=== PATIENT | female | born 1985 | race Caucasian/White ===

== ENCOUNTER → 2021-08-17 11:21 | Outpatient (CLI) | payer SELFPAY | PROVIDERS: PCP Family Medicine; Visit Provider Family Medicine | DX: R30.9 Painful micturition, unspecified (principal) | CPT/HCPCS: 87086 ==

== ENCOUNTER → 2021-11-25 08:28 | Outpatient (CLI) | payer SELFPAY ==
[2021-11-25 18:45] LABS: Hematocrit 42.7 % (36-46); Hemoglobin 14.3 g/dL (12.0-16.0); Mean Corpuscular HGB Conc 33.5 % (30-36); Mean Corpuscular Volume 89.6 fL (80-100); Platelet Count 272 X10^3/uL (150-400); Red Blood Cell Count 4.77 X10^6/uL (4.0-5.2); Red Cell Distribution Width 13.1 % (11.6-14.8); White Blood Cell Count 5.8 X10^3/uL (4.5-11.0)
[2021-11-25 19:08] LABS: Alanine Aminotransferase 14 IU/L (<35); Albumin 4.9 g/dL (3.5-5.0); Albumin Globulin Ratio 1.6 (1.0-2.8); Alkaline Phosphatase 64 U/L (38-126); Amylase 71 U/L (30-110); Aspartate Aminotransferase 24 IU/L (14-36); Bilirubin Total 0.6 mg/dL (0.2-1.3); Blood Urea Nitrogen 12 mg/dL (7-17); Calcium 9.5 mg/dL (8.4-10.2); Carbon Dioxide 29 mmol/L (22-32); Chloride 100 mmol/L (98-107); Estimated Glomerular Filt Rate > 60.0 mL/min (>60); Gamma Glutamyl Transpeptidase 29 U/L (12-43); Globulin 3.1 g/dL (1.7-4.1); Glucose 93 mg/dL (70-100); HEMOLYSIS < 15 (0-50); Lipase 32 U/L (23-300); Potassium 4.1 mmol/L (3.4-5.1); Sodium 138 mmol/L (137-145)
[2021-11-25 19:54] LABS: Neutrophils Absolute Manual 2204 /uL (3000-5900); Total Cells Counted 100
[2021-11-25 19:56] LABS: Anisocytosis 1+
== END ==
PROVIDERS: PCP Family Medicine; Visit Provider Physician Assistant Medical
DX: M94.0 Chondrocostal junction syndrome [Tietze] (principal); R07.81 Pleurodynia; R10.12 Left upper quadrant pain
CPT/HCPCS: 80053; 82150; 82977; 83690; 85025

== ENCOUNTER → 2021-12-02 11:37 | Outpatient (CLI) | payer SELFPAY ==
[2021-12-02 19:58] LABS: Add Manual Diff / Slide Review NO; Basophils Absolute Auto 0 /uL (0-100); Basophils Percent Auto 0.6 % (0-2); Eosinophils Absolute Auto 100 /uL (0-450); Eosinophils Percent Auto 1.8 % (2-4); Hematocrit 39.1 % (36-46); Hemoglobin 13.4 g/dL (12.0-16.0); Lymphocytes Absolute Auto 2200 /uL (1100-4500); Lymphocytes Percent Auto 34.3 % (25-40); Mean Corpuscular HGB Conc 34.2 % (30-36); Mean Corpuscular Hemoglobin 30.5 PG (26-34); Mean Corpuscular Volume 89.2 fL (80-100); Monocytes Absolute Auto 600 /uL (0-900); Monocytes Percent Auto 9.1 % (3-14); Neutrophils Absolute Auto 3400 /uL (1500-7000); Neutrophils Percent Auto 54.2 % (50-75); Platelet Count 339 X10^3/uL (150-400); Red Blood Cell Count 4.38 X10^6/uL (4.0-5.2); Red Cell Distribution Width 13.1 % (11.6-14.8); White Blood Cell Count 6.4 X10^3/uL (4.5-11.0)
== END ==
PROVIDERS: PCP Family Medicine; Visit Provider Physician Assistant Medical
DX: R79.89 Other specified abnormal findings of blood chemistry (principal)
CPT/HCPCS: 85025

== ENCOUNTER → 2022-04-16 10:41 | Outpatient (CLI) | payer SELFPAY ==
--- NOTE | 2022-04-16 | DI.US.S_ITS ---
PROCEDURE: US ABDOMEN COMPLETE INDICATIONS: LUQ PAIN TECHNIQUE: Real-time scanning was performed of the abdominal and retroperitoneal organs, with image documentation. COMPARISON: None. FINDINGS: Liver: Liver is normal in size and homogeneous in echotexture. Gallbladder: There is no gallstone. No gallbladder wall thickening or pericholecystic fluid. No sonographic Nguyễn sign. Biliary ducts: Intrahepatic bile ducts are non-dilated. Extrahepatic bile duct caliber measures 3.4 mm. Normal is 6-7 mm or less in diameter, or 10 mm or less post-cholecystectomy. Pancreas: Visualized portions of the pancreas are sonographically normal. Spleen: Spleen is normal in size and homogeneous in echotexture. Kidneys: Kidneys are normal in size and echotexture. Right kidney measures 10.0 cm long; left kidney measures 9.8 cm long. No hydronephrosis or nephrolithiasis. No solid masses. Aorta: Visualized aorta is normal in caliber at less than 3 cm. Iliacs: Proximal common iliac arteries are normal in caliber at less than 2.5 cm. IVC: Intrahepatic inferior vena cava is patent. Miscellaneous: No free abdominal fluid. IMPRESSION: Unremarkable ultrasound examination of abdomen. No finding to explain patient's symptoms. Dictated by: Juanjo Odom M.D. on 04/16/2022 at 12:02 Approved by: Juanjo Odom M.D. on 04/16/2022 at 12:08
== END ==
PROVIDERS: PCP Physician Assistant Medical; Referring Provider Physician Assistant Medical; Visit Provider Physician Assistant Medical
DX: R10.12 Left upper quadrant pain (principal)
CPT/HCPCS: 76700

== ENCOUNTER 2023-03-22 08:46 | Emergency (ER) | payer SELFPAY ==
[2023-03-22 09:00] VITALS: BP 142/77; PULSE 107; RESP 16; TEMP 36.4; O2SAT 100; BMI 19.8
--- NOTE | 2023-03-22 09:10 | ED.GENADULT ---
HPI - General Adult General Chief complaint: Neck Pain/Injury Stated complaint: Chiropractor T-1 neck pain/ can't sleep/N/dizzy/ Time Seen by Provider: 03/22/23 09:04 Source: patient Mode of arrival: Ambulatory Limitations: no limitations History of Present Illness HPI narrative: Patient is a 37-year-old female who yesterday went to a chiropractor for the 1st time. She states that was because she was having some rib discomfort. She stated that she was adjusted but did not have any ?cracking? of her back or her neck. She stated that the chiropractor use the ?thumper?. She states that the very last adjustment was the left side of her upper back but not her neck. She stated that afterwards she was not feeling very well. She did have some vomiting. Since that time she is had a lot of neck discomfort and upper back discomfort. She could not sleep last night. She found very dizzy. No headache. No abdominal pain. Related Data Home Medications Medication Instructions Recorded Confirmed levetiracetam 250 mg tablet 250 mg PO ONCE 11/23/21 11/23/21 lorazepam 1 mg tablet 1 mg PO DAILY PRN 11/23/21 11/23/21 prazosin 2 mg capsule 2 mg PO BEDTIME 11/23/21 11/23/21 propranolol 120 mg capsule,24 120 mg PO DAILY 11/23/21 11/23/21 hr,extended release propranolol 40 mg tablet 20 mg PO ONCE PRN 11/23/21 11/23/21 Previous Rx's Medication Instructions Recorded gabapentin 100 mg capsule 100 mg PO TID #42 caps 11/25/21 cyclobenzaprine 10 mg tablet 10 mg PO TID PRN muscle spasm #20 03/22/23 tabs cyclobenzaprine 10 mg tablet 10 mg PO TID PRN muscle spasm #20 03/22/23 tabs Allergies Allergy/AdvReac Type Severity Reaction Status Date / Time clindamycin Allergy Severe Anaphylaxis Unverified 11/23/21 06:36 latex Allergy Unknown Rash Unverified 11/23/21 06:36 Review of Systems Constitutional Constitutional: Reports system reviewed and no additional complaints, except as documented Musculoskeletal Musculoskeletal: Reports system reviewed and no additional complaints, except as documented Integumentary/Breasts Skin/Breast: Reports system reviewed and no additional complaints, except as documented Neurologic Neurologic: Reports system reviewed and no additional complaints, except as documented Patient History Medical History Family history of anxiety disorder Family history of migraine headaches in mother Impacted cerumen, right ear Right ear pain Surgical History (Updated 11/23/21 @ 07:00 by Kitty Lynch CMA) H/O: hysterectomy Social History Smoking Status: Smoker, status unknown Smoking Status: Smoker, status unknown Exam Initial Vital Signs Initial Vital Signs: Vital Signs Temperature 97.6 F 03/22/23 09:00 Pulse Rate 107 H 03/22/23 09:00 Respiratory Rate 16 03/22/23 09:00 Blood Pressure 142/77 H 03/22/23 09:00 Pulse Oximetry 100 03/22/23 09:00 Oxygen Delivery Method Room Air 03/22/23 09:00 HENMT Head: normal to inspection and normocephalic Resp Effort & Inspection: normal respiratory effort Cardio Rate: regular rate Back/Spine/Pelvis Other: Patient has discomfort in the right cervical paraspinal with fullness of the muscles in his area. She also has discomfort over the right trapezius/rhomboid with fullness of the muscle was well. She is no lumbar tenderness. Does have some discomfort with palpation of the left-sided paraspinal but certainly not as much as the right. Neuro General: patient alert and patient awake Extrem Other: No gross deformities Psych Mood: anxious mood Course Orders Ordered: ED Orders 03/22/23 10:59 CT cervical spine wo con Stat Discontinued Medications Diazepam (Diazepam 5 Mg Tablet) 5 mg PO NOW ONE Stop: 03/22/23 09:11 Last Admin: 03/22/23 09:18 Dose: 5 mg Documented By: SUSAN Ketorolac Tromethamine (Ketorolac 30 Mg/Ml Vial) 30 mg IM NOW ONE Stop: 03/22/23 09:11 Last Admin: 03/22/23 09:18 Dose: 30 mg Documented By: SUSAN Vital Signs Vital signs: Vital Signs - 8 hr 03/22/23 09:00 03/22/23 09:46 03/22/23 10:39 Temperature 97.6 F Pulse Rate 107 H 92 H 82 Respiratory Rate 16 14 19 Blood Pressure 142/77 H 115/58 L 115/58 L Pulse Oximetry 100 97 99 Oxygen Delivery Method Room Air Room Air Room Air Medical Decision Making Lab Data Lab results reviewed: Yes I reviewed the patient's lab results. Labs: Urine Dip Bedside Urine Glucose Negative Bedside Urine Bilirubin - Negative Bedside Urine Ketone +++ 80 Urine Specific [place] 1.010 Bedside Urine Occult Blood - Negative Bedside Urine pH 6.0 Bedside Urine Protein - Negative Bedside Urine Urobilinogen - Negative Bedside Urine Nitrite - Negative Bedside Urine Leukocytes - Negative Esterase Point of care testing: Urine Dip Bedside Urine Glucose Negative Bedside Urine Bilirubin - Negative Bedside Urine Ketone +++ 80 Urine Specific [place] 1.010 Bedside Urine Occult Blood - Negative Bedside Urine pH 6.0 Bedside Urine Protein - Negative Bedside Urine Urobilinogen - Negative Bedside Urine Nitrite - Negative Bedside Urine Leukocytes - Negative Esterase MDM Narrative Medical decision making narrative: Patient is very anxious upon arrival. She has reproducible discomfort to her right-sided cervical paraspinal region and also her right-sided thoracic spinal region. Given her presentation today I do have low suspicion that she has a dissection or an aneurysm. She states she did not get any high velocity treatments yesterday by the chiropractor and there was no specific treatment in her cervical region. It was after the chiropractor use the minimally invasive ?thumper? on the left side of her upper back as when she started to have the symptoms. A very strong suspicion that this is muscular in origin. She was given Valium and Toradol. She states she felt less anxious but was still having quite a bit of discomfort. It is absolutely positional. When she extends her neck or turns her head from [id number] is when the symptoms occur most. There is a fullness of the muscle on the right side consistent with a muscle spasm. No fractures noted. Had a discussion with her regarding this. We did discuss conservative measures to include heat and ice and massage. Was sent home with muscle relaxers. Patient was given return precautions. She expressed understanding and agreement. Discharge Plan Departure Patient Disposition: Home Clinical Impression: Cervical muscle strain, Upper back pain Instructions: DI for Muscle Spasm Activity Restrictions/Additional Instructions: I do recommend that you continue with a conservative measures such as heat and ice and light stretching and massage. You can also continue with anti-inflammatories such as Motrin/ibuprofen and also Naprosyn. A prescription for muscle relaxers was sent to [facility].. Please start taking them as directed. Return to the emergency department for new symptoms. Prescriptions: New cyclobenzaprine 10 mg tablet 10 mg PO TID PRN (Reason: muscle spasm) Qty: 20 0RF cyclobenzaprine 10 mg tablet 10 mg PO TID PRN (Reason: muscle spasm) Qty: 20 0RF No Action gabapentin 100 mg capsule 100 mg PO TID Qty: 42 0RF propranolol 40 mg tablet 20 mg PO ONCE PRN Rx Instructions: Take 1 by mouth 1-2x/day in addition to the 120mg daily version when needed for anxiety. propranolol 120 mg capsule,extended release 24 hr 120 mg PO DAILY prazosin 2 mg capsule 2 mg PO BEDTIME Rx Instructions: Take 4 capsules (8 mg) by mouth at bedtime. levetiracetam 250 mg tablet 250 mg PO ONCE Rx Instructions: Take one daily for a week and then 1/2 daily for a week. lorazepam 1 mg tablet 1 mg PO DAILY PRN Rx Instructions: Take 0.5-2 tablets (0.5-2 mg) by mouth daily as needed for anxiety. Referrals: Mary Mckeon PA-C [Primary Care Provider] - Stand Alone Forms: Patient Portal/API
[2023-03-22] MEDS: KETOROLAC 30 MG/ML VIAL IM (09:18)
[2023-03-22] MEDS: diazePAM 5 MG TABLET PO (09:18)
[2023-03-22 09:46] VITALS: BP 115/58; PULSE 92; RESP 14; O2SAT 97
[2023-03-22 10:39] VITALS: BP 115/58; PULSE 82; RESP 19; O2SAT 99
--- NOTE | 2023-03-22 10:59 | DI.CT.S_ITS ---
PROCEDURE: CT CERVICAL SPINE WO CON INDICATIONS: pain after chiropractor adjustment TECHNIQUE: Noncontrast 3 mm thick sections acquired from the skull base to the T4 level. Sagittal and coronal reformats were then constructed. For radiation dose reduction, the following was used: automated exposure control, adjustment of mA and/or kV according to patient size. COMPARISON: [facility], CT, CT CERVICAL SPINE WITHOUT CONTRAST, 03/10/2019, 0:43. FINDINGS: Image quality: This examination is limited by involuntary motion artifact. Bones: No fractures or dislocations. Visualized superior ribs are intact. Soft tissues: Prevertebral soft tissues are normal in thickness. No paravertebral hematomas. No apical pneumothoraces. IMPRESSION: Motion limited study, yet without an acute fracture identified. If there is strong clinical concern for dissection in this patient with this given history, then please consider a dedicated CT angiogram of the neck for further evaluation. Dictated by: Rao Marie M.D. on 03/22/2023 at 10:52 Approved by: Rao Marie M.D. on 03/22/2023 at 10:53
== END 2023-03-22 12:20 | disposition home or self-care (01) ==
PROVIDERS: Emergency Provider Emergency Medicine; PCP Physician Assistant Medical
DX: S16.1XXA Strain of muscle, fascia and tendon at neck level, initial encounter (principal); M54.6 Pain in thoracic spine; X58.XXXA Exposure to other specified factors, initial encounter
CPT/HCPCS: 72125; 81003; 96372; 99284; J1885

== ENCOUNTER 2023-03-24 21:15 | Emergency (ER) | payer SELFPAY ==
[2023-03-24 21:21] VITALS: BP 149/56; PULSE 140; RESP 22; TEMP 36.6; O2SAT 99; BMI 19.7
[2023-03-24 23:48] VITALS: BP 119/56; PULSE 92; O2SAT 100
[2023-03-25] VITALS (35 sets, daily range): BP systolic 94–114; BP diastolic 54–71; PULSE 75–117; RESP 16–18; O2SAT 96–100
--- NOTE | 2023-03-25 01:39 | DI.MRI.S_ITS ---
PROCEDURE: MR THORACIC SPINE WO CON INDICATIONS: Left arm and bilateral feet tingling TECHNIQUE: Noncontrast sagittal T1 spine echo and T2 fast spin echo, sagittal STIR, and T2 fast spin echo through the thoracic spine. COMPARISON: None. FINDINGS: Image quality: Excellent. Alignment and Curvature: There is normal bony alignment. Bone Marrow: There is an intra osseous hemangioma in T8. Marrow is of normal overall signal. No acute vertebral body compression fractures. Spinal Cord: Visualized spinal cord is normal in size and signal. Paraspinous Soft Tissues: No paravertebral masses. Miscellaneous: On axial images, central canal and foramina appear widely patent at all scanned levels. IMPRESSION: Normal thoracic spine. Dictated by: Lewis Padron M.D. on 03/25/2023 at 7:53 Approved by: Lewis Padron M.D. on 03/25/2023 at 8:43
--- NOTE | 2023-03-25 01:39 | DI.MRI.S_ITS ---
PROCEDURE: MR CERVICAL SPINE WO CON INDICATIONS: Left arm and bilateral feet tingling TECHNIQUE: Noncontrast sagittal T1 spin echo and T2 fast spin echo, sagittal STIR, foraminal oblique sagittal T2 fast spin echo, and axial gradient echo or T2 fast spin echo through the cervical spine. COMPARISON: [facility], MR, MR THORACIC SPINE WO CON, 03/25/2023, 6:14. [facility], CT, CT CERVICAL SPINE WO CON, 03/22/2023, 11:23. FINDINGS: Image quality: Excellent. Alignment and Curvature: There is trace anterolisthesis of C2 on C3. Bone Marrow: Marrow demonstrates normal overall signal. Spinal Cord: Visualized spinal cord has normal size and signal. No cerebellar tonsillar herniation. Paraspinous Soft Tissues: No paravertebral masses. Prevertebral soft tissues are normal in thickness. C2-C3: Normal appearance. C3-C4: Preserved disc height. Moderate disc desiccation. There is mild diffuse posterior disc bulge. The central canal is patent. No foraminal stenosis. C4-C5: Mild loss of disc height and disc desiccation. There is diffuse posterior disc bulge. There is posterior central annular fissure. Bilateral uncovertebral hypertrophy. Mild bilateral facet arthropathy. The central canal is severely narrowed causing flattening and anterior indentation of the cord. Severe narrowing of the left lateral recess, and mild narrowing of the right lateral recess. Moderate left and mild right foraminal stenosis. C5-C6: Mild loss of disc height and disc desiccation. There is diffuse posterior disc bulge. Bilateral uncovertebral hypertrophy. Mild bilateral facet arthropathy. The central canal is [id number] narrowed in the anterior-posterior dimension causing flattening of the cord. Mild bilateral foraminal stenosis. C6-C7: Preserved disc height. Mild disc desiccation. There is mild diffuse posterior disc bulge and bilateral uncal vertebral hypertrophy. Mild left paracentral disc protrusion (series 4, image [id number]). The central canal is mildly narrowed. No foraminal stenosis. C7-T1: Normal appearance. IMPRESSION: 1. Multilevel degenerative disc disease and facet arthropathy as described. 2. There is central canal stenosis, severe at C4-C5, [id number] at C5-C6, and mild at C6-C7. 3. 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 4. Severe narrowing of the left C4-C5 lateral recess. Dictated by: Lewis Padron M.D. on 03/25/2023 at 7:53 Approved by: Lewis Padron M.D. on 03/25/2023 at 9:02
--- NOTE | 2023-03-25 01:41 | ED_ITS ---
HPI - Neck Pain/Injury <Graeme Cardona MD - Last Filed: 04/04/23 09:25> General Chief Complaint: Neck Pain/Injury Stated Complaint: Neck pain, Back pain, Extremity tingling Time Seen by Provider: 03/25/23 01:30 Mode of arrival: Ambulatory History of Present Illness HPI Narrative: Patient brought here by partner for ongoing left arm numbness tingling in bilateral feet tingling and ongoing headache and cervical and mid back pain. Patient seen here 2 days ago for the same complaint. Pain and neuro complaints have not improved. Patient seen on Tuesday for chiropractor services. Patient and state there was no twisting of the spine or manipulating in that kind of fashion. He used a ?thumper at patient's left ribs. However, patient has worsening pain since 2 days ago. Denies any saddle paresthesia. No bowel or bladder incontinence or retention.. Has history of hysterectomy Related Data Home Medications Medication Instructions Recorded Confirmed levetiracetam 250 mg tablet 250 mg PO ONCE 11/23/21 11/23/21 lorazepam 1 mg tablet 1 mg PO DAILY PRN 11/23/21 11/23/21 prazosin 2 mg capsule 2 mg PO BEDTIME 11/23/21 11/23/21 propranolol 120 mg capsule,24 120 mg PO DAILY 11/23/21 11/23/21 hr,extended release propranolol 40 mg tablet 20 mg PO ONCE PRN 11/23/21 11/23/21 Previous Rx's Medication Instructions Recorded cyclobenzaprine 10 mg tablet 10 mg PO TID PRN muscle spasm #20 03/22/23 tabs cyclobenzaprine 10 mg tablet 10 mg PO TID PRN muscle spasm #20 03/22/23 tabs hydrocodone 5 mg-acetaminophen 325 1 tab PO Q8H PRN pain (scale score 03/28/23 mg tablet 7-10) #3 tabs Allergies Allergy/AdvReac Type Severity Reaction Status Date / Time clindamycin Allergy Severe Anaphylaxis Verified 03/28/23 10:28 latex Allergy Unknown Rash Verified 03/28/23 10:28 Review of Systems <Graeme Cardona MD - Last Filed: 04/04/23 09:25> Review of Systems Narrative: GENERAL: negative chills, fatigue, malaise, fever, sweats. HEENT: negative sinus pain, ear pain, sore throat RESPIRATORY: negative dyspnea, cough CARDIOVASCULAR: negative chest pain, palpitations GASTROINTESTINAL: negative nausea, vomiting, abdominal pain : negative dysuria, frequency, hematuria MUSCULOSKELETAL: Positive muscle or bony pain SKIN: negative rash, skin lesions NEUROLOGIC: negative weakness, positive numbness ROS Unobtainable: All systems reviewed & are unremarkable except as noted in HPI and below Patient History <Graeme Cardona MD - Last Filed: 04/04/23 09:25> Medical History Family history of anxiety disorder Family history of migraine headaches in mother Impacted cerumen, right ear Right ear pain Surgical History H/O: hysterectomy Social History Smoking Status: Smoker, status unknown Smoking Status: Smoker, status unknown alcohol intake frequency: a few times a week Alcohol type: beer Substance Use Type: does not use Exam <Graeme Cardona MD - Last Filed: 04/04/23 09:25> Narrative Exam Narrative: GENERAL: in no distress, not toxic not dyspneic HEAD: Normocephalic. EYES: Pupils equal round ENT: Mucous membranes moist. NECK: Trachea midline. Bilateral paracervical muscle tenderness. No midline tenderness or step-off of the cervicothoracic lumbar spine. Patient able to twist at the trunk and mid back without difficulty. Able to lean forward and back easily as well. No erythema or bruising. CARDIOVASCULAR: Regular rate and rhythm without murmurs RESPIRATORY: Clear to auscultation. Breath sounds equal bilaterally. No wheezes, rales, or rhonchi. GASTROINTESTINAL: Abdomen soft, non-tender EXTREMITIES: No gross deformities. BACK: No flank tenderness. NEURO: AOx4. Clear speech no facial droop light touch intact bilateral face hands and feet. She was in socks removed. Patient had steady self gait in the hallway to her room. No ataxia. No footdrop. Strong bilateral sales promotion director and ankle flexion-extension and knee/hip flexion and extension. Fast exam is negative. Patient does have pain with rotating her head, has bilateral paracervical muscle tenderness. SKIN: Warm and dry PSYCH: Not anxious, is cooperative Initial Vital Signs Initial Vital Signs: Vital Signs Temperature 97.8 F 03/24/23 21:21 Pulse Rate 140 H 03/24/23 21:21 Respiratory Rate 22 03/24/23 21:21 Blood Pressure 149/56 H 03/24/23 21:21 Pulse Oximetry 99 03/24/23 21:21 Oxygen Delivery Method Room Air 03/24/23 21:21 <Tatianna Mcclendon DO - Last Filed: 03/25/23 19:01> Initial Vital Signs Initial Vital Signs: Vital Signs Temperature 97.8 F 03/24/23 21:21 Pulse Rate 140 H 03/24/23 21:21 Respiratory Rate 22 03/24/23 21:21 Blood Pressure 149/56 H 03/24/23 21:21 Pulse Oximetry 99 03/24/23 21:21 Oxygen Delivery Method Room Air 03/24/23 21:21 Course <Graeme Cardona MD - Last Filed: 04/04/23 09:25> Orders Ordered: Discontinued Medications Diazepam (Diazepam 5 Mg Tablet) 10 mg PO NOW ONE Stop: 03/25/23 13:56 Last Admin: 03/25/23 16:03 Dose: 10 mg Documented By: UMU Sodium Chloride (Normal Saline 0.9%) 500 mls @ 1,000 mls/hr IV BOLUS ONE Stop: 03/25/23 02:08 Last Infusion: 03/25/23 04:07 Dose: 0 mls/hr Documented By: Admin: 03/25/23 01:59 Dose: 1,000 mls/hr Documented By: LYNSEY Sodium Chloride (Normal Saline 0.9%) 1,000 mls @ 1,000 mls/hr IV BOLUS ONE Stop: 03/25/23 08:29 Last Infusion: 03/25/23 08:49 Dose: 0 mls/hr Documented By: Admin: 03/25/23 07:39 Dose: 1,000 mls/hr Documented By: UMU Ketorolac Tromethamine (Ketorolac 30 Mg/Ml Vial) 15 mg IV NOW ONE Stop: 03/25/23 01:40 Last Admin: 03/25/23 01:59 Dose: 15 mg Documented By: LYNSEY Ketorolac Tromethamine (Ketorolac 30 Mg/Ml Vial) 15 mg IV NOW ONE Stop: 03/25/23 09:58 Last Admin: 03/25/23 10:51 Dose: 15 mg Documented By: UMU Lorazepam (Lorazepam 2 Mg/Ml Inj) 0.5 mg IV NOW ONE Stop: 03/25/23 06:22 Last Admin: 03/25/23 06:24 Dose: 0.5 mg Documented By: LYNSEY Lorazepam (Lorazepam 2 Mg/Ml Inj) 0.5 mg IV NOW ONE Stop: 03/25/23 11:42 Last Admin: 03/25/23 11:55 Dose: 0.5 mg Documented By: UMU Methylprednisolone (Methylprednisolone 125 Mg/2 Ml Vial) 125 mg IV NOW ONE Stop: 03/25/23 01:40 Last Admin: 03/25/23 01:59 Dose: 125 mg Documented By: LYNSEY Morphine Sulfate (Morphine 4 Mg/Ml Inj) 4 mg IV NOW ONE Stop: 03/25/23 01:40 Last Admin: 03/25/23 01:59 Dose: 4 mg Documented By: LYNSEY Morphine Sulfate (Morphine 4 Mg/Ml Inj) 4 mg IV NOW ONE Stop: 03/25/23 07:30 Last Admin: 03/25/23 07:40 Dose: 4 mg Documented By: UMU Morphine Sulfate (Morphine 4 Mg/Ml Inj) 4 mg IV NOW ONE Stop: 03/25/23 15:25 Last Admin: 03/25/23 15:40 Dose: 4 mg Documented By: UMU Vital Signs Vital signs: Vital Signs - 8 hr 03/25/23 11:00 03/25/23 11:00 03/25/23 11:30 Pulse Rate 97 H Respiratory Rate Blood Pressure 114/69 102/57 L Pulse Oximetry 98 Oxygen Delivery Method 03/25/23 11:30 03/25/23 12:00 03/25/23 12:00 Pulse Rate 96 H 92 H Respiratory Rate Blood Pressure 102/63 Pulse Oximetry 98 98 Oxygen Delivery Method 03/25/23 12:30 03/25/23 12:30 03/25/23 13:00 Pulse Rate 95 H Respiratory Rate 18 Blood Pressure 102/61 94/61 Pulse Oximetry 98 Oxygen Delivery Method Room Air 03/25/23 13:00 03/25/23 13:30 03/25/23 14:00 Pulse Rate 98 H 99 H Respiratory Rate Blood Pressure Pulse Oximetry 98 100 100 Oxygen Delivery Method 03/25/23 14:07 03/25/23 15:10 03/25/23 15:30 Pulse Rate 117 H Respiratory Rate Blood Pressure 99/57 L 101/57 L Pulse Oximetry 99 Oxygen Delivery Method 03/25/23 15:40 03/25/23 16:00 03/25/23 16:01 Pulse Rate 96 H 94 H 94 H Respiratory Rate Blood Pressure Pulse Oximetry 98 100 100 Oxygen Delivery Method 03/25/23 16:01 Pulse Rate Respiratory Rate Blood Pressure 109/60 Pulse Oximetry Oxygen Delivery Method <Tatianna Mcclendon DO - Last Filed: 03/25/23 19:01> Orders Ordered: Discontinued Medications Diazepam (Diazepam 5 Mg Tablet) 10 mg PO NOW ONE Stop: 03/25/23 13:56 Last Admin: 03/25/23 16:03 Dose: 10 mg Documented By: UMU Sodium Chloride (Normal Saline 0.9%) 500 mls @ 1,000 mls/hr IV BOLUS ONE Stop: 03/25/23 02:08 Last Infusion: 03/25/23 04:07 Dose: 0 mls/hr Documented By: Admin: 03/25/23 01:59 Dose: 1,000 mls/hr Documented By: LYNSEY Sodium Chloride (Normal Saline 0.9%) 1,000 mls @ 1,000 mls/hr IV BOLUS ONE Stop: 03/25/23 08:29 Last Infusion: 03/25/23 08:49 Dose: 0 mls/hr Documented By: Admin: 03/25/23 07:39 Dose: 1,000 mls/hr Documented By: UMU Ketorolac Tromethamine (Ketorolac 30 Mg/Ml Vial) 15 mg IV NOW ONE Stop: 03/25/23 01:40 Last Admin: 03/25/23 01:59 Dose: 15 mg Documented By: LYNSEY Ketorolac Tromethamine (Ketorolac 30 Mg/Ml Vial) 15 mg IV NOW ONE Stop: 03/25/23 09:58 Last Admin: 03/25/23 10:51 Dose: 15 mg Documented By: UMU Lorazepam (Lorazepam 2 Mg/Ml Inj) 0.5 mg IV NOW ONE Stop: 03/25/23 06:22 Last Admin: 03/25/23 06:24 Dose: 0.5 mg Documented By: LYNSEY Lorazepam (Lorazepam 2 Mg/Ml Inj) 0.5 mg IV NOW ONE Stop: 03/25/23 11:42 Last Admin: 03/25/23 11:55 Dose: 0.5 mg Documented By: UMU Methylprednisolone (Methylprednisolone 125 Mg/2 Ml Vial) 125 mg IV NOW ONE Stop: 03/25/23 01:40 Last Admin: 03/25/23 01:59 Dose: 125 mg Documented By: LYNSEY Morphine Sulfate (Morphine 4 Mg/Ml Inj) 4 mg IV NOW ONE Stop: 03/25/23 01:40 Last Admin: 03/25/23 01:59 Dose: 4 mg Documented By: LYNSEY Morphine Sulfate (Morphine 4 Mg/Ml Inj) 4 mg IV NOW ONE Stop: 03/25/23 07:30 Last Admin: 03/25/23 07:40 Dose: 4 mg Documented By: UMU Morphine Sulfate (Morphine 4 Mg/Ml Inj) 4 mg IV NOW ONE Stop: 03/25/23 15:25 Last Admin: 03/25/23 15:40 Dose: 4 mg Documented By: UMU Vital Signs Vital signs: Vital Signs - 8 hr 03/25/23 11:00 03/25/23 11:00 03/25/23 11:30 Pulse Rate 97 H Respiratory Rate Blood Pressure 114/69 102/57 L Pulse Oximetry 98 Oxygen Delivery Method 03/25/23 11:30 03/25/23 12:00 03/25/23 12:00 Pulse Rate 96 H 92 H Respiratory Rate Blood Pressure 102/63 Pulse Oximetry 98 98 Oxygen Delivery Method 03/25/23 12:30 03/25/23 12:30 03/25/23 13:00 Pulse Rate 95 H Respiratory Rate 18 Blood Pressure 102/61 94/61 Pulse Oximetry 98 Oxygen Delivery Method Room Air 03/25/23 13:00 03/25/23 13:30 03/25/23 14:00 Pulse Rate 98 H 99 H Respiratory Rate Blood Pressure Pulse Oximetry 98 100 100 Oxygen Delivery Method 03/25/23 14:07 03/25/23 15:10 03/25/23 15:30 Pulse Rate 117 H Respiratory Rate Blood Pressure 99/57 L 101/57 L Pulse Oximetry 99 Oxygen Delivery Method 03/25/23 15:40 03/25/23 16:00 03/25/23 16:01 Pulse Rate 96 H 94 H 94 H Respiratory Rate Blood Pressure Pulse Oximetry 98 100 100 Oxygen Delivery Method 03/25/23 16:01 Pulse Rate Respiratory Rate Blood Pressure 109/60 Pulse Oximetry Oxygen Delivery Method MDM - Neck Pain/Injury <Graeme Cardona MD - Last Filed: 04/04/23 09:25> Lab Data 03/25/23 01:45 03/25/23 01:45 Labs: Lab Results 03/25/23 03/25/23 03/25/23 Range/Units 01:45 01:45 14:39 WBC 6.7 (4.5-11.0) X10^3/uL RBC 4.09 (4.0-5.2) X10^6/uL Hgb 12.6 (12.0-16.0) g/dL Hct 36.7 (36-46) % MCV 89.8 (80-100) fL MCH 30.8 (26-34) PG MCHC 34.3 (30-36) % RDW 12.5 (11.6-14.8) % Plt Count 303 (150-400) X10^3/uL Neut % (Auto) 51.1 (50-75) % Lymph % (Auto) 37.8 (25-40) % [place] % (Auto) 8.6 (3-14) % Eos % (Auto) 2.3 (2-4) % Baso % (Auto) 0.2 (0-2) % Neut # (Auto) 3400 (3727-5772) /uL Lymph # (Auto) 2500 (2453-6185) /uL [place] # (Auto) 600 (0-900) /uL Eos # (Auto) 200 (0-450) /uL Baso # (Auto) 0 (0-100) /uL Sodium 138 (137-145) mmol/L Potassium 4.2 (3.4-5.1) mmol/L Chloride 105 (98-107) mmol/L Carbon Dioxide 27 (22-32) mmol/L BUN 12 (7-17) mg/dL Creatinine 0.60 (0.52-1.04) mg/dL Estimated GFR > 60 (>60) mL/min BUN/Creatinine Ratio 20.0 (6-22) Glucose 67 L (70-100) mg/dL Calcium 9.0 (8.4-10.2) mg/dL Total Bilirubin 0.4 (0.2-1.3) mg/dL AST 23 (14-36) IU/L ALT 15 (<35) IU/L Alkaline Phosphatase 54 (38-126) U/L Total Protein 7.5 (6.3-8.2) g/dL Albumin 4.6 (3.5-5.0) g/dL Globulin 2.9 (1.7-4.1) g/dL Albumin/Globulin Ratio 1.6 (1.0-2.8) SARS-CoV-2 (PCR) Negative (Negative) MDM Narrative Medical decision making narrative: Patient brought here by partner for ongoing left arm numbness tingling in bilateral feet tingling and ongoing headache and cervical and mid back pain. Patient seen here 2 days ago for the same complaint. Pain and neuro complaints have not improved. Patient seen on Tuesday for chiropractor services. Patient and state there was no twisting of the spine or manipulating in that kind of fashion. He used a ?thumper at patient's left ribs. However, patient has worsening pain since 2 days ago. Denies any saddle paresthesia. No bowel or bladder incontinence or retention.. Has history of hysterectomy After history and exam CBC CMP MRI cervical and thoracic spine morphine Toradol Solu-Medrol normal saline MDM CC: Headache neck pain back pain limb tingling Complicating co-morbidities: Recent chiropractic services Data collected from: Patient and Medical records reviewed: ER visit here 2 days ago March 22, 2023 Differential considered: Includes but not limited to spinal infarct disc herniation cauda equina cord compression diskitis spinal hematoma Exam documented above, pertinent findings include: Light touch intact bilateral hands and feet Lab Test results independently reviewed as above. Pertinent findings: WBC 6.7 hemoglobin 12.6 sodium 138 potassium 4.2 Imaging studies independently reviewed: MRI cervical spine MRI thoracic spine Consultations: Treatments: Re-evaluations: Discussion: 7:00 a.m. Brendan: Sign out to Dr Mcclendon, MRI cervical spine and thoracic spine are pending. May need to contact Neurology Services for consult Diagnosis: <Tatianna Mcclendon, DO - Last Filed: 03/25/23 19:01> Lab Data Labs: Lab Results 03/25/23 03/25/23 03/25/23 Range/Units 01:45 01:45 14:39 WBC 6.7 (4.5-11.0) X10^3/uL RBC 4.09 (4.0-5.2) X10^6/uL Hgb 12.6 (12.0-16.0) g/dL Hct 36.7 (36-46) % MCV 89.8 (80-100) fL MCH 30.8 (26-34) PG MCHC 34.3 (30-36) % RDW 12.5 (11.6-14.8) % Plt Count 303 (150-400) X10^3/uL Neut % (Auto) 51.1 (50-75) % Lymph % (Auto) 37.8 (25-40) % [place] % (Auto) 8.6 (3-14) % Eos % (Auto) 2.3 (2-4) % Baso % (Auto) 0.2 (0-2) % Neut # (Auto) 3400 (0008-7055) /uL Lymph # (Auto) 2500 (4217-2880) /uL [place] # (Auto) 600 (0-900) /uL Eos # (Auto) 200 (0-450) /uL Baso # (Auto) 0 (0-100) /uL Sodium 138 (137-145) mmol/L Potassium 4.2 (3.4-5.1) mmol/L Chloride 105 (98-107) mmol/L Carbon Dioxide 27 (22-32) mmol/L BUN 12 (7-17) mg/dL Creatinine 0.60 (0.52-1.04) mg/dL Estimated GFR > 60 (>60) mL/min BUN/Creatinine Ratio 20.0 (6-22) Glucose 67 L (70-100) mg/dL Calcium 9.0 (8.4-10.2) mg/dL Total Bilirubin 0.4 (0.2-1.3) mg/dL AST 23 (14-36) IU/L ALT 15 (<35) IU/L Alkaline Phosphatase 54 (38-126) U/L Total Protein 7.5 (6.3-8.2) g/dL Albumin 4.6 (3.5-5.0) g/dL Globulin 2.9 (1.7-4.1) g/dL Albumin/Globulin Ratio 1.6 (1.0-2.8) SARS-CoV-2 (PCR) Negative (Negative) Imaging Data Cspine MRI: Radiologist's Impression: [place] [id number] Magnetic Resonance Report Signed Patient: Chanelle Patel MR#: [id number] : 1985 Acct:[id number] Age/Sex: 37 / F Date of Service: 03/25/23 Loc: ED Accession Number: [id number] ?? Procedure: MR cervical spine wo con Ordering Provider: Graeme Cardona MD PROCEDURE:? MR CERVICAL SPINE WO CON ? INDICATIONS:? Left arm and bilateral feet tingling ? TECHNIQUE:? Noncontrast sagittal T1 spin echo and T2 fast spin echo, sagittal STIR, foraminal oblique sagittal T2 fast spin echo, and axial gradient echo or T2 fast spin echo through the cervical spine.? ? COMPARISON:? [facility], MR, MR THORACIC SPINE WO CON, 03/25/2023, 6:14.? [facility], CT, CT CERVICAL SPINE WO CON, 03/22/2023, 11:23. ? FINDINGS:? Image quality:? Excellent.? ? Alignment and Curvature:? There is trace anterolisthesis of C2 on C3.? ? Bone Marrow:? Marrow demonstrates normal overall signal.? ? Spinal Cord:? Visualized spinal cord has normal size and signal.? No cerebellar tonsillar herniation.? ? Paraspinous Soft Tissues:? No paravertebral masses.? Prevertebral soft tissues are normal in thickness.? ? C2-C3:? Normal appearance.? ? C3-C4:? Preserved disc height.? Moderate disc desiccation.? There is mild diffuse posterior disc bulge.? The central canal is patent.? No foraminal stenosis. ? C4-C5:? Mild loss of disc height and disc desiccation.? There is diffuse posterior disc bulge.? There is posterior central annular fissure.? Bilateral uncovertebral hypertrophy. ?Mild bilateral facet arthropathy.? The central canal is severely narrowed causing flattening and anterior indentation of the cord.? Severe narrowing of the left lateral recess, and mild narrowing of the right lateral recess.? Moderate left and mild right foraminal stenosis. ? C5-C6:? Mild loss of disc height and disc desiccation.? There is diffuse posterior disc bulge.? Bilateral uncovertebral hypertrophy.? Mild bilateral facet arthropathy.? The central canal is [id number] narrowed in the anterior-posterior dimension causing flattening of the cord.? Mild bilateral foraminal stenosis. ? C6-C7:? Preserved disc height.? Mild disc desiccation.? There is mild diffuse posterior disc bulge and bilateral uncal vertebral hypertrophy.? Mild left paracentral disc protrusion (series 4, image [id number]).? The central canal is mildly narrowed.? No foraminal stenosis. ? C7-T1:? Normal appearance.? ? IMPRESSION:? ? 1. Multilevel degenerative disc disease and facet arthropathy as described. ? 2. There is central canal stenosis, severe at C4-C5, [id number] at C5- C6, and mild at C6-C7. ? 3.? 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 ? 4. Severe narrowing of the left C4-C5 lateral recess. ? Dictated by: Lewis Padron M.D. on 03/25/2023 at 7:53 ? ? Approved by: Lewis Padron M.D. on 03/25/2023 at 9:02?? Thoracic MRI: Radiologist's Impression: Close Thoracic Spine MRI (Signed) Lewis Padron - 03/25/23 Cervical Spine MRI (Signed) Lewis Padron - 03/25/[address] (Signed) Rao Marie - 03/22/23 Abdomen Ultrasound (Signed) Juanjo Odom - 04/16/22 Ribs X-Ray (Signed) Narendra Sawant - 11/25/21 [place] [address] Magnetic Resonance Report Signed Patient: Chanelle Patel MR#: [id number] : 1985 Acct:[id number] Age/Sex: 37 / F Date of Service: 03/25/23 Loc: ED Accession Number: [id number] ?? Procedure: MR thoracic spine wo con Ordering Provider: Graeme Cardona MD PROCEDURE:? MR THORACIC SPINE WO CON ? INDICATIONS:? Left arm and bilateral feet tingling ? TECHNIQUE:? Noncontrast sagittal T1 spine echo and T2 fast spin echo, sagittal STIR, and T2 fast spin echo through the thoracic spine.? ? COMPARISON:? None. ? FINDINGS:? Image quality:? Excellent.? ? Alignment and Curvature:? There is normal bony alignment.? ? Bone Marrow:? There is an intra osseous hemangioma in T8.? Marrow is of normal overall signal.? No acute vertebral body compression fractures.? ? Spinal Cord:? Visualized spinal cord is normal in size and signal.? ? Paraspinous Soft Tissues:? No paravertebral masses.? ? Miscellaneous:? On axial images, central canal and foramina appear widely patent at all scanned levels.? ? IMPRESSION:? Normal thoracic spine. ? ? Dictated by: Lewis Padron M.D. on 03/25/2023 at 7:53 ? ? Approved by: Lewis Padron M.D. on 03/25/2023 at 8:43?? CT neck: Radiologist's Impression: [address] [id number] Scan ReportSigned Patient: Chanelle PatelMR#: [id number]: 1985Acct:[id number]/Sex: 37 / FDate of Service: 03/22/23Loc: EDAccession Number: [id number]? ? Procedure: CT cervical spine wo con Ordering Provider: Abad Ortiz D.O. PROCEDURE:? CT CERVICAL SPINE WO CON ? INDICATIONS:? pain after chiropractor adjustment ? TECHNIQUE:? Noncontrast 3 mm thick sections acquired from the skull base to the T4 level.? Sagittal and coronal reformats were then constructed.? For radiation dose reduction, the following was used:? automated exposure control, adjustment of mA and/or kV according to patient size.? ? COMPARISON:? [facility], CT, CT CERVICAL SPINE WITHOUT CONTRAST, 03/10/2019, 0:43. ? FINDINGS:? Image quality:? This examination is limited by involuntary motion artifact.? ? Bones:? No fractures or dislocations.? Visualized superior ribs are intact.? ? Soft tissues:? Prevertebral soft tissues are normal in thickness.? No paravertebral hematomas.? No apical pneumothoraces.? ? ? IMPRESSION:? Motion limited study, yet without an acute fracture identified. ? If there is strong clinical concern for dissection in this patient with this given history, then please consider a dedicated CT angiogram of the neck for further evaluation.? Dictated by: Rao Marie M.D. on 03/22/2023 at 10:52? ?? Approved by: Rao Marie M.D. on 03/22/2023 at 10:53?? MDM Narrative Medical decision making narrative: Patient brought here by partner for ongoing left arm numbness tingling in bilateral feet tingling and ongoing headache and cervical and mid back pain. Patient seen here 2 days ago for the same complaint. Pain and neuro complaints have not improved. Patient seen on Tuesday for chiropractor services. Patient and state there was no twisting of the spine or manipulating in that kind of fashion. He used a ?thumper at patient's left ribs. However, patient has worsening pain since 2 days ago. Denies any saddle paresthesia. No bowel or bladder incontinence or retention.. Has history of hysterectomy After history and exam CBC CMP MRI cervical and thoracic spine morphine Toradol Solu-Medrol normal saline MDM CC: Headache neck pain back pain limb tingling Complicating co-morbidities: Recent chiropractic services Data collected from: Patient and Medical records reviewed: ER visit here 2 days ago March 22, 2023 Differential considered: Includes but not limited to spinal infarct disc herniation cauda equina cord compression diskitis spinal hematoma Exam documented above, pertinent findings include: Light touch intact bilateral hands and feet Lab Test results independently reviewed as above. Pertinent findings: WBC 6.7 hemoglobin 12.6 sodium 138 potassium 4.2 Imaging studies independently reviewed: MRI cervical spine MRI thoracic spine Consultations: Treatments: Re-evaluations: Discussion: 7:00 a.m. Brendan: Sign out to Dr Mcclendon, MRI cervical spine and thoracic spine are pending. May need to contact Neurology Services for consult Diagnosis: 03/25/23 [place]akan: Patient signed out to myself. Patient seen and evaluated independently. Patient's thoracic spine is negative cervical spine shows multi degenerative disc disease there is some central canal stenosis severe at C4-5 with flattening and anterior indentation of the cord, severe narrowing left lateral recess some mild narrowing of the right lateral recess. Moderate left and mild right foraminal stenosis. Moderate to severe narrowing with anterior-posterior dimension flattening of the cord at C5-6. And central canal is mildly narrowed below. Patient's main symptoms are neck pain and limb tingling with no other weakness. Consultation with Dr. Cash covering for orthopedic surgery: Feels appropriate for discharge could do a soft collar patient is more comfortable. Does not recommend a hard collar. Can pile with Dr. Odom and then will decide next steps. GEN: well nourished, well appearing female, alert and oriented x 3, patient appears to be in mild distress. HEENT: Atraumatic, pupils are equal round reactive to light, extraocular move ments are intact, nares are clear, Throat is clear without any exudates, erythema, tonsillar enlargement or uvular deviation HEART: Regular rate and rhythm without murmur, clicks, rubs. pulses are equal in upper and lower extremities LUNGS:Lungs clear to auscultation, no wheezes, rales, crackles, chest moves symmetrically ABD:bowel sounds normal, soft, non-tender, no guarding, rebound, rigidity, no masses noted, no hepatosplenomegaly :No CVA tenderness BACK: No cervical, thoracic or lumbar vertebral point tenderness. Patient has normal range of motion. No saddle anesthesia. Muscle strength is 5/5 in lower extremities, DTRs are 2/4 upper and slightly more brisk but still 2/4 in lower extremities. Dorsalis pedis and tibialis pulses are 2+ and lower extremities. Sensation is intact in upper and lower extremities. MSCL: Non-tender, no muscle atrophy, muscles strength 5/5 upper and lower extremities, full range of motion, normal gait NEURO:CN 2-12 intact, sensation normal, reflexes 2/4 upper and lower extremities. finger nose finger test normal, heel doss test normal. Discussed findings with patient. Her exam is overall reassuring but patient is very anxious she is had sounds like several medical misadventures including uterine rupture and after some discussion we will push her images to [facility] to review with spinal surgery there for any additional or further recomme ndations. Spoke with Dr. Cordova discussed findings from today. He would recommend a regular trauma collar over soft collar at this point. Discussed that based on her symptomology would recommend transfer for evaluation [id number] at [facility] ED. Patient is accepted but to make clear that she is not guarantee to have surgery today this is more for evaluation and then will decide if needs intervention. Patient and family after discussion: They have elected for transfer they were initially reluctant or wanting to drive by private auto. Patient placed in C- collar. Discharge Plan Departure Patient Disposition: [facility] Clinical Impression: Cervical stenosis of spinal canal, Paresthesias Prescriptions: No Action cyclobenzaprine 10 mg tablet 10 mg PO TID PRN (Reason: muscle spasm) Qty: 20 0RF cyclobenzaprine 10 mg tablet 10 mg PO TID PRN (Reason: muscle spasm) Qty: 20 0RF hydrocodone-acetaminophen 5-325 mg tablet 1 tab PO Q8H PRN (Reason: pain (scale score 7-10)) Qty: 3 0RF Rx Instructions: Take with food and water and do not take additional Tylenol/Acetaminophen products. propranolol 40 mg tablet 20 mg PO ONCE PRN Rx Instructions: Take 1 by mouth 1-2x/day in addition to the 120mg daily version when needed for anxiety. propranolol 120 mg capsule,extended release 24 hr 120 mg PO DAILY prazosin 2 mg capsule 2 mg PO BEDTIME Rx Instructions: Take 4 capsules (8 mg) by mouth at bedtime. levetiracetam 250 mg tablet 250 mg PO ONCE Rx Instructions: Take one daily for a week and then 1/2 daily for a week. lorazepam 1 mg tablet 1 mg PO DAILY PRN Rx Instructions: Take 0.5-2 tablets (0.5-2 mg) by mouth daily as needed for anxiety. Referrals: Mary Mckeon PA-C [Primary Care Provider] -
[2023-03-25] MEDS: SODIUM CHLORIDE 0.9% 500 ML 1000 ML IV (01:59)
[2023-03-25] MEDS: methylPREDNISolone 125 MG/2 ML VIAL IV (01:59)
[2023-03-25] MEDS: KETOROLAC 30 MG/ML VIAL 15 MG IV ×2 (01:59→10:51)
[2023-03-25] MEDS: MORPHINE 4 MG/ML INJ IV ×3 (01:59→15:40)
[2023-03-25 02:09] LABS: Alanine Aminotransferase 15 IU/L (<35); Albumin 4.6 g/dL (3.5-5.0); Albumin Globulin Ratio 1.6 (1.0-2.8); Alkaline Phosphatase 54 U/L (38-126); Aspartate Aminotransferase 23 IU/L (14-36); Bilirubin Total 0.4 mg/dL (0.2-1.3); Blood Urea Nitrogen 12 mg/dL (7-17); Carbon Dioxide 27 mmol/L (22-32); Chloride 105 mmol/L (98-107); Estimated Glomerular Filt Rate > 60 mL/min (>60); Globulin 2.9 g/dL (1.7-4.1); Glucose 67 mg/dL (70-100); HEMOLYSIS < 15 (0-50); Potassium 4.2 mmol/L (3.4-5.1); Sodium 138 mmol/L (137-145); Total Protein 7.5 g/dL (6.3-8.2)
[2023-03-25 02:12] LABS: Add Manual Diff / Slide Review NO; Basophils Absolute Auto 0 /uL (0-100); Basophils Percent Auto 0.2 % (0-2); Eosinophils Absolute Auto 200 /uL (0-450); Eosinophils Percent Auto 2.3 % (2-4); Hematocrit 36.7 % (36-46); Hemoglobin 12.6 g/dL (12.0-16.0); Lymphocytes Absolute Auto 2500 /uL (1100-4500); Lymphocytes Percent Auto 37.8 % (25-40); Mean Corpuscular HGB Conc 34.3 % (30-36); Mean Corpuscular Hemoglobin 30.8 PG (26-34); Mean Corpuscular Volume 89.8 fL (80-100); Monocytes Absolute Auto 600 /uL (0-900); Monocytes Percent Auto 8.6 % (3-14); Neutrophils Absolute Auto 3400 /uL (1500-7000); Neutrophils Percent Auto 51.1 % (50-75); Platelet Count 303 X10^3/uL (150-400); Red Blood Cell Count 4.09 X10^6/uL (4.0-5.2); Red Cell Distribution Width 12.5 % (11.6-14.8); White Blood Cell Count 6.7 X10^3/uL (4.5-11.0)
[2023-03-25] MEDS: LORazepam 2 MG/ML INJ 0.5 MG IV ×2 (06:24→11:55)
[2023-03-25] MEDS: SODIUM CHLORIDE 0.9% 1,000 ML 1000 ML IV (07:39)
[2023-03-25 15:03] LABS: COVID19 -Nasal RAPID Negative (Negative)
[2023-03-25] MEDS: diazePAM 5 MG TABLET 10 MG PO (16:03)
== END 2023-03-25 17:13 | disposition short-term general hospital (02) ==
PROVIDERS: Emergency Medicine; Emergency Provider Emergency Medicine; PCP Physician Assistant Medical
DX: M48.02 Spinal stenosis, cervical region (principal); R20.2 Paresthesia of skin; Z79.01 Long term (current) use of anticoagulants; Z20.822 Contact with and (suspected) exposure to COVID-19
CPT/HCPCS: 36415; 72141; 72146; 80053; 85025; 87635; 96361; 96374; 96375; 96376; 99284; 99285; C9803; J1885; J2060; J2270; J2930

== ENCOUNTER → 2023-12-29 14:11 | Outpatient (CLI) | payer SELFPAY | PROVIDERS: PCP Physician Assistant Medical; Visit Provider Physician Assistant Medical | DX: N39.0 Urinary tract infection, site not specified (principal) | CPT/HCPCS: 87086 ==